=== PATIENT | male | born 1950 | race African-American/Black ===

== ENCOUNTER 2019-10-28 05:51 | Day surgery (SDC) | payer MEDICARE ==
--- NOTE | 2019-10-27 13:39 | Pre-Procedure Note/Attestation ---
Pre-Procedure Note/Attestation Complete Prior to Procedure Planned Procedure: left Procedure Narrative: Cataract extraction with IOL implant left eye Indications for Procedure Pre-Operative Diagnosis: Posterior subcapsular cataract left eye Attestation I attest that I discussed the nature of the procedure; its benefits; risks and complications; and alternatives (and the risks and benefits of such alternatives ), prior to the procedure, with the patient (or the patient's legal registered representative). I attest that, if there was a reasonable possibility of needing a blood transfusion, the patient (or the patient's legal registered representative) was given the [facility] standardized written summary, pursuant to the [place] Blood Safety Act ([place] Health and Safety Code # 1645, as amended). I attest that I re-evaluated the patient just prior to the surgery and that there has been no change in the patient's H&P, except as documented below: Zachariah Temple MD Oct 27, 2019 13:39
--- NOTE | 2019-10-27 13:39 | Opthalmology H&P ---
Ophthalmology H&P H&P Chief Complaint: decreased vision in left eye HPI Vision Affects Ability to: read, manage personal affairs Past Ocular History: retinal problems - PDR/ME OU HPI Narrative Blurry vision Exam Visual Acuity: OD 20/100 OS Counting Fingers Tension: OD 17 OS 16 Eye Exam: normal OU: external exam, palpebral fissure-width, marginal reflex distance, levator function, corneas, anterior chambers; findings: lens - PSC Cat. OS , fundus exam - PDR/ME OU Assessment/Plan Treatment Plan: cataract extraction w/ lens implant Goals of Treatment: improvement of vision, enhance quality of life Attestation Attestation The risks and benefits of the surgery as well as alternative procedures were explained to the patient in detail. Zachariah Temple MD Oct 27, 2019 13:39
[~2019-10-28] VITALS: Ht 180.3 cm; Wt 104.3 kg
[2019-10-28] VITALS (9 sets, daily range): BP systolic 147–164; BP diastolic 80–111
[~2019-10-28 05:51] MED LIST: LANTUS SOL100 UNIT/1 SUBQ; NOVOLOG100 UNIT/5 SUBQ
[2019-10-28] MEDS: Cyclopentolate 1% Opth Sol 2ml LEFT EYE SCH ×2 (06:17→06:26)
[2019-10-28] MEDS: Tropicamide 1% Opth 15ml Soln LEFT EYE SCH ×2 (06:17→06:26)
[2019-10-28] MEDS: Phenylephrine 10% Opth Soln 5ml LEFT EYE SCH ×2 (06:17→06:26)
[2019-10-28] MEDS: Tobramycin Op Soln 0.3% 5ml LEFT EYE SCH ×2 (06:18→06:26)
[2019-10-28] MEDS: Diclofenac Sod 0.1% Op Soln LEFT EYE SCH ×2 (06:18→06:26)
[2019-10-28] MEDS ORDERED: LOSARTAN POTAS100 MG ORAL (06:31)
[2019-10-28] MEDS ORDERED: ATORVASTATIN CA20 MG ORAL (06:31)
[2019-10-28] MEDS ORDERED: FLOMAX0.4 MG ORAL (06:31)
[2019-10-28] MEDS ORDERED: EPINEPHrine 1mg/1ml Amp ONE (06:46)
[2019-10-28] MEDS ORDERED: Lidocaine 4% Amp 5ml ONE (06:46)
[2019-10-28] MEDS ORDERED: acetaZOLAMIDE 500mg Inj ONE (06:47)
[2019-10-28] MEDS ORDERED: Carbachol 0.01% Op Soln 1.5ml vial ONE (06:47)
[2019-10-28] MEDS ORDERED: BSS 500ml btl ONE (06:47)
[2019-10-28] MEDS ORDERED: BSS 15ml BTL ONE (06:48)
[2019-10-28] MEDS ORDERED: Sodium Hyaluronate 10 mg/ml 0.85ml ONE (06:48)
[2019-10-28] MEDS ORDERED: Povidone-Iodine 5% opth solution ONE (06:48)
[2019-10-28] MEDS ORDERED: Midazolam 2mg/2ml Inj ONE (06:55)
[2019-10-28] MEDS ORDERED: fentaNYL 100 mcg/2 mL IV ONE (06:55)
[2019-10-28] MEDS ORDERED: prednisoLONE acetate 1% Opth Susp 1ml ONE (07:00)
[2019-10-28] MEDS ORDERED: Akten 3.5% 1ml Btl LEFT EYE ONE (07:00)
[2019-10-28] MEDS ORDERED: Proparacaine 0.5% Opth Soln 15ml LEFT EYE ONE (07:00)
[2019-10-28] MEDS ORDERED: Maxitrol Opth Oint 3.5gm ONE (07:00)
[2019-10-28] MEDS ORDERED: Tetracaine 0.5% Opth 4ml Soln LEFT EYE ONE (07:00)
[2019-10-28] MEDS ORDERED: Pilocarpine 1% Opth 15ml Soln ONE (07:00)
--- NOTE | 2019-10-28 07:18 | Anethesia Preoperative Eval ---
Anesthesia Pre-op PMH/ROS General Date of Evaluation: Oct 28, 2019 Time of Evaluation: 07:17 Anesthesiologist: elmo ASA Score: ASA 3 Mallampati Score Class I : Soft palate, uvula, fauces, pillars visible Class II: Soft palate, uvula, fauces visible Class III: Soft palate, base of uvula visible Class IV: Only hard plate visible Mallampati Classification: Class III Surgeon: heidi Diagnosis: cataract Surgical Procedure: cataract extraction with IOL Anesthesia History: none Family History: no anesthesia problems Allergies: Coded Allergies: No Known Allergies (Unverified , 10/28/19) Medications: see eMAR Patient NPO?: Yes NPO Date: Oct 28, 2019 NPO Time: 00:01 Past Medical History Cardiovascular: Reports: HTN, CAD Pulmonary: Denies: asthma, COPD, AD, other Gastrointestinal/Genitourinary: Denies: GERD, CRI, ESRD, other Neurologic/Psychiatric: Denies: dementia, CVA, depression/anxiety, TIA, other Endocrine: Reports: DM; Denies: hypothyroidism, steroids, other HEENT: Reports: cataract (L); Denies: cataract (R), glaucoma, [place] (L), [place] (R), other Hematology/Immune: Denies: anemia, DVT, bleeding disorder, other Musculoskeletal/Integumentary: Denies: OA, RA, DJD, DDD, edema, other Other: obesity PSxH Narrative: none Anesthesia Pre-op Phys. Exam Physician Exam Last Vital Signs Date Time Temp Pulse Resp B/P (MAP) Pulse Ox O2 Delivery O2 Flow Rate FiO2 10/28/19 06:22 Room Air 10/28/19 06:21 97.0 86 18 155/93 98 Constitutional: NAD Cardiovascular: RRR Respiratory: CTA Gastrointestinal: S/NT/ND Airway Exam Mallampati Classification 3 Mallampati Score: Class II MO: full Neck: thick Dentures: no upper, no lower Anesthesia Pre-op A/P Labs Chemistry Test 10/28/19 06:40 POC Whole Blood Glucose 140 MG/DL (74-106) H Accucheck 140 Studies Pre-op Studies: EKG - SR Risk Assessment & Plan Assessment: covid neg; denies SOB, chest pain Plan: MAC Status Change Before Surgery: No Pre-Antibiotics Drug: none Winifred Mendoza PROCESS VALIDATION ENGINEER Oct 28, 2019 07:18
[2019-10-28] MEDS ORDERED: LR 1000ml ONE (07:30)
[2019-10-28] MEDS ORDERED: Sterile Water Irrig 1000ml IRRIG ONE (07:30)
[2019-10-28] MEDS ORDERED: NS Irrig 1000ml ONE (07:30)
--- NOTE | 2019-10-28 10:57 | Immediate Post-Op Evaluation ---
Immediate Post-Op Evalulation Immediate Post-Op Evalulation Procedure: cataract extraction Date of Evaluation: Oct 28, 2019 Time of Evaluation: 08:07 IV Fluids: 500 Blood Pressure Systolic: 150 Blood Pressure Diastolic: 60 Pulse Rate: 65 Respiratory Rate: 14 O2 Sat by Pulse Oximetry: 99 Temperature (Fahrenheit): 98.1 Nausea: No Vomiting: No Complications none Patient Status: awake, reacts, patent Hydration Status: adequate Drug: none Winifred Mendoza CRNA Oct 28, 2019 10:57
--- NOTE | 2019-10-28 11:01 | 48 Hour Post Anesthesia Eval ---
Post Anesthesia Evaluation Procedure: cataract extraction Date of Evaluation: Oct 28, 2019 Time of Evaluation: 11:01 Blood Pressure Systolic: 160 0: 80 Pulse Rate: 14 Respiratory Rate: 14 Temperature (Fahrenheit): 97.5 O2 Sat by Pulse Oximetry: 99 Airway: patent Nausea: No Vomiting: No Hydration Status: adequate Cardiopulmonary Status: stable Mental Status/LOC: patient returned to baseline Post-Anesthesia Complications: none Follow-up care needed: N/A Winifred Mendoza CRNA Oct 28, 2019 11:01
--- NOTE | 2019-10-31 11:24 | Brief Operative Note ---
Immediate Post Operative Note Operative Note Chief Complaint: Blurry vision Pre-op Diagnosis: Posterior subcapsular cataract left eye Procedure: Cataract extraction with IOL Implant left eye Post-op Diagnosis: aphakia Findings: consistent w/pre-op dx studies, other - loose zonules Surgeon: Zachariah Temple MD Anesthesiologist: Winifred Mendoza MD Anesthesia: MAC Specimen: none Complications: none Condition: stable Fluids: LR Estimated Blood Loss: none Drains: none Implant(s) used?: No Zachariah Temple MD Oct 31, 2019 11:24
--- NOTE | 2019-10-31 11:35 | Operative Note - PDOC ---
Operative Note Operative Note Date of Operation/Procedure: Oct 28, 2019 Chief Complaint: Blurry vision Pre-op Diagnosis: Posterior subcapsular cataract left eye Procedure: Cataract extraction with IOL Implant left eye Post-op Diagnosis: aphakia Operative Findings: consistent w/pre-op dx studies, other - loose zonules Surgeon: Zachariah Temple MD Anesthesiologist: Winifred Mendoza MD Anesthesia: MAC Specimen: none Complications: none Condition: stable Fluids: LR Estimated Blood Loss: none Drains: none Implant(s) used?: No Indications for Procedure Posterior subcapsular cataract left eye Description of Procedure This patient has been complaining visually significant cataract in the left eye with the best corrected visual acuity of counting fingers at four feet distance. The patient complains of difficulties with glare in performing activities of daily living and wants to manage personal affairs with comfort and accuracy and see well enough to move with safety at home and outdoors. The risks, benefits and alternatives of the procedure were discussed with the patient in the office prior to scheduling surgery. All questions from the patient were answered after the surgical procedure was explained in detail. The risks of the procedure as explained to the patient include, but are not limited to, pain, infection, bleeding, loss of vision, retinal detachment, need for further surgery, loss of lens nucleus, double vision, etc. Alternative procedures were discussed which include, to do nothing or seek a second opinion. Informed consent for this procedure was obtained from the patient. The patient was referred to a primary care physician for a cardiopulmonary clearance prior to surgery, after proper evaluation was done patient was properly scheduled for outpatient surgery. The patient was brought to the operating room where the anesthesiologist established I.V. lines and cardiac monitoring leads. Mild intravenous sedation was administered. The patient was then prepared with a 5% solution of povidone -iodine to the conjunctival fornix and lashes, and a 5% solution of povidone- iodine to the lids and periorbital skin. The patient was then draped in the usual sterile fashion. A lid speculum was then placed in the operative eye. A keratome blade was then used to create a biplanar incision into the anterior chamber. Viscoelastics was then instilled into the anterior chamber. As the utrata forceps was being introduced to start capsulorrhexis, it was noted that the lens was tilted and zonular dialysis was noted. After careful re evaluation of the surgical field, viscoelastics was removed from the anterior chamber using the irrigation and aspiration unit. No further manipulation was done. The corneal wound was then tested for leaks and none were found. The lid speculum were then removed. Sponge and needle counts were correct. An eye patch and shield were placed over the operative eye. The patient was taken to the recovery room in stable condition. The patient was then referred to another facility for further evaluation and management on the same day. Zachariah Temple MD Oct 31, 2019 11:35
== END 2019-10-28 09:10 | disposition home or self-care (01) ==
LOC: SUR 05:51
DX: H25.042 Posterior subcapsular polar age-related cataract, left eye (principal); E11.9 Type 2 diabetes mellitus without complications; I11.9 Hypertensive heart disease without heart failure; I25.10 Atherosclerotic heart disease of native coronary artery without angina pectoris; E66.9 Obesity, unspecified; Z68.32 Body mass index [BMI] 32.0-32.9, adult; Z79.82 Long term (current) use of aspirin; Z79.899 Other long term (current) drug therapy
CPT/HCPCS: 66984; 82962; 94003; J0171; J1100; J1120; J2250; J3010; J3370; J7120; U0002; 94150